=== PATIENT | male | born 1990 | race Hispanic/Latino ===

== ENCOUNTER 2016-11-26 11:41 | Emergency (ER) | payer OTHER ==
[~2016-11-26] VITALS: Ht 172.7 cm; Wt 136.1 kg
[2016-11-26 11:59] LABS: ABSOLUTE BASOPHIL COUNT 0 /CUMM (0.0-0.2); ABSOLUTE EOSINOPHIL COUNT 0.1 /CUMM (0.0-0.7); ABSOLUTE GRANULOCYTE CT 4.6 /CUMM (1.4-6.5); ABSOLUTE LYMPH COUNT 3.7 /CUMM (1.2-3.4); ABSOLUTE MONOCYTE COUNT 0.8 /CUMM (0.10-0.60); BASOPHIL % 0.5 % (0.0-2.0); EOSINOPHIL % 1.6 % (0-5); GRANULOCYTE % 49.3 % (42.2-75.2); HEMATOCRIT 45.9 % (42-52); MEAN CORPUSCULAR HGB 29.2 PG (27.0-31.0); MEAN CORPUSCULAR HGB CONC 34.5 G/DL (33.0-37.0); MEAN CORPUSCULAR VOLUME 84.6 FL (80.0-94.0); MEAN PLATELET VOLUME 8.3 FL (7.4-10.4); PLATELET COUNT 369 /CUMM (130-400); RBC DISTRIBUTION WIDTH 13.3 % (11.5-14.5); RED BLOOD CELL CT 5.42 /CUMM (4.70-6.10); WHITE BLOOD CELL COUNT 9.2 /CUMM (4.8-10.8)
--- NOTE | 2016-11-26 13:07 | RADIOLOGY REPORT ---
EXAMINATION: XR CHEST CLINICAL INFORMATION: Chest pain COMPARISON: None TECHNIQUE: 2 views of the chest were obtained. FINDINGS: Cardia mediastinal silhouette is within normal limits. Lungs are clear. Bony thorax is intact. IMPRESSION: No acute pulmonary disease.
--- NOTE | 2016-11-26 13:12 | ED CARDIAC/CP/PALPITATIONS ---
History of Present Illness General Chief Complaint: Chest Pain Stated Complaint: CHEST PAIN Source: patient Exam Limitations: no limitations Vital Signs & Intake/Output Vital Signs & Intake/Output Vital Signs Date Time Temp Pulse Resp B/P Pulse O2 O2 Flow FiO2 Ox Delivery Rate 11/26 1541 97.7 86 18 130/77 97 Room Air 11/26 1416 89 18 133/88 98 Room Air 11/26 1230 Room Air Room Air 11/26 1148 98.8 104 16 150/95 97 Room Air Allergies Coded Allergies: NO KNOWN ALLERGIES (06/05/13) Reconcile Medications No Known Home Medications Triage Note: 26 Y/O MALE C/O CHEST PAIN AND "LIPS ARE TINGLY" AND "MY LEFT ARM FEELS WEIRD" - SYMPTOMS ONSET THIS AM WHILE AT WORK. DENIES HX OF SAME. CURRENT CHEST PAIN 03/30. EKG COMPLETE AND SIGNED BY MD GOLDSMITH - SINUS TACH, RATE 106 BLOOD DRAW IN PROGRESS Triage Nurses Notes Reviewed? yes HPI: 26-year-old male with complaints of sudden onset of left-sided upper chest pain which is a sharp sensation that occurred at around 10:30 this morning while he was at work. He was not doing anything strenuous. 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 He denies any cough or congestion fever or flulike illness no history of DVT or PE and no medical problems. He has no family history of heart disease. His pain lasted a few minutes and then developed numbness into the left shoulder and down the left arm and perioral numbness. He felt his heart was racing at the time as well. Earlier in the morning he Drank 2 5 hour energies which is part of his usual morning routine. He has no leg swelling or edema. His symptoms are minimal at this time except for a small amount of numbness feeling in the left anterior shoulder region. He has no shortness of breath or dyspnea on exertion. His palpitations have subsided as well. Heart rate on my evaluation is 98/m on the monitor. (MOLLY AGUIRRE) Past History Travel History Traveled to [place] past 21 day No Medical History Any Pertinent Medical History? 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 No (MOLLY AGUIRRE) Review of Systems Review of Systems Constitutional: Reports: see HPI. EENTM: Reports: no symptoms. Respiratory: Reports: no symptoms. Cardiovascular: Reports: see HPI. GI: Reports: no symptoms. Genitourinary: Reports: no symptoms. Musculoskeletal: Reports: no symptoms. Skin: Reports: no symptoms. Neurological/Psychological: Reports: no symptoms. Hematologic/Endocrine: Reports: no symptoms. Immunologic/Allergic: Reports: no symptoms. All Other Systems: Reviewed and Negative (MOLLY AGUIRRE) Physical Exam Physical Exam Respiratory: normal breath sounds, chest non-tender, no respiratory distress Cardiovascular: regular rate/rhythm Comments: Well-developed well-nourished no apparent distress. HEENT: Atraumatic, extraocular motion intact Neck: Supple, no lymphadenopathy Back: Nontender Respiratory: No respiratory distress Extremities: No edema, full range of motion Neuro: Alert and oriented x3 Psych: Mood affect normal, normal memory normal judgment. Skin: Warm and dry, no rash on exposed skin Core Measures ACS in differential dx? Yes Severe Sepsis Present: No Septic Shock Present: No (MOLLY AGUIRRE) Progress Differential Diagnosis: AMI, aortic dissection, atrial fibrillation, cholecystitis, CHF/pulm edema, costochondritis, hyperkalemia, hypovolemia, hyperthyroid, hyperventilation, intracranial hemorrhage, musculoskeletal pain, myocarditis, pancreatitis, pericarditis, pneumonia, pneumothorax, PSVT, pulmonary embolism, PUD/GERD, PVCs/PACs, respiratory failure, rib fracture, sepsis, unstable angina, V-fib/V-Tach, WPW syndrome Plan of Care: Orders Procedure Date/time Status TROPONIN LEVEL 11/26 1417 Complete EKG 11/26 1417 Active Add-on Test (ER Only) 11/26 1318 Active D-DIMER 11/26 1149 Complete TROPONIN LEVEL 11/26 1144 Complete COMPREHENSIVE METABOLIC PANEL 11/26 1144 Complete CBC WITHOUT DIFFERENTIAL 11/26 1144 Complete EKG 11/26 1142 Active Laboratory Tests 11/26/16 1429: Troponin I < 0.01 11/26/16 1149: D-Dimer < 200 11/26/16 1140: Anion Gap 9, Estimated GFR > 60, BUN/Creatinine Ratio 18.3, Glucose 101 H, Calcium 9.8, Total Bilirubin 0.5, AST 44, ALT 84 H, Alkaline Phosphatase 67, Troponin I < 0.01, Total Protein 7.3, Albumin 4.6, Globulin 2.7, Albumin/ Globulin Ratio 1.7, CBC w Diff NO MAN DIFF REQ, RBC 5.42, MCV 84.6, MCH 29.2, RDW 13.3, MPV 8.3, Gran % 49.3, Lymphocytes % 40.4, Monocytes % 8.2, Eosinophils % 1.6, Basophils % 0.5, Absolute Granulocytes 4.6, Absolute Lymphocytes 3.7 H, Absolute Monocytes 0.8 H, Absolute Eosinophils 0.1, Absolute Basophils 0, PUBS MCHC 34.5 Diagnostic Imaging: Viewed by Me: Radiology Read. Discussed w/RAD: Radiology Read. CXR Impression: no acute abnormality, no infiltrates, normal size heart, normal mediastinum Initial ED EKG: NSR, rate (105), no ST T wave changes Repeat EKG: changed (hr now 80bpm) Rhythm Strip: sinus tachycardia (100 bpm) Comments: Workup is negative, d-dimer is negative. Discussed with Dr. Tiwari, he does have mild tachycardia upon initial evaluation. We will continue to monitor him on security monitor and repeat EKG and troponin. Patient reevaluated and symptoms have resolved. His repeat EKG and troponin are negative, heart rate in the 80s, symptoms have resolved. Doubt PE/DVT, possibly related to his energy drink excessive use. Also considered acute coronary syndrome however to EKGs and troponins are negative/unremarkable. He is referred to primary care doctor in the area for further evaluation and treatment. (MOLLY AGUIRRE) Departure Departure Disposition: HOME OR SELF CARE Condition: Stable Clinical Impression Primary Impression: Chest pain Qualifiers: Chest pain type: unspecified Qualified Code: R07.9 - Chest pain, unspecified Secondary Impressions: Tachycardia Referrals: CHRIS LANCASTER MD Additional Instructions: Follow-up with your primary care doctor with continued concerns of chest pain Rest, drink plenty of fluids, avoid energy drinks and stimulants including caffeine Return to the ER with worsening chest pain, shortness of breath, feeling as if you're going to pass out Departure Forms: Customer Survey General Discharge Information Prescriptions: Current Visit Scripts No Known Home Medications (MOLLY AGUIRRE) PA/COOK HELPER [employer]UIT Co-Sign Statement Statement: ED Attending supervision documentation- [] I saw and evaluated the patient. I have also reviewed all the pertinent lab results and diagnostic results. I agree with the findings and the plan of care as documented in the PA's/COOK HELPER [employer]UIT's documentation. [X] I have reviewed the ED Record and agree with the PA's/COOK HELPER [employer]UIT's documentation. [] Additions or exceptions (if any) to the PAs/COOK HELPER [employer]UIT's note and plan are summarized below: [] (MYRTLE GOLDSMITH DO) Critical Care Note Critical Care Note Critical Care Time: non-applicable (MOLLY AGUIRRE)
[2016-11-26 15:41] VITALS: BP 130/77
== END 2016-11-26 15:41 ==
LOC: ERH 11:41
PROVIDERS: Emergency Medicine
DX: R07.9 Chest pain, unspecified (principal); R00.0 Tachycardia, unspecified
CPT/HCPCS: 93005; 93010